=== PATIENT | female | born 1970 | race Caucasian/White ===

== ENCOUNTER → 2019-11-04 | Outpatient (CLI) | payer OTHER ==
--- NOTE | 2019-11-04 12:37 | RAD ---
EXAM: Renal sonogram. HISTORY: Recurrent UTIs. Renal cysts. TECHNIQUE: Sonographic imaging the kidneys and bladder was performed. COMPARISON: None. FINDINGS: The kidneys normal in size. There is no hydronephrosis. There are small simple renal cysts, measuring 9 mm on the right and 13 hours on the left. No solid renal lesion is seen. There is incidental hepatic steatosis. The urinary bladder is unremarkable. IMPRESSION: 1. Small simple renal cysts. No follow-up is routinely recommended for simple cysts. 2. No acute sonographic finding. Electronically signed by: Kaylene Knutson MD (11/04/2019 12:34 PM) [facility]
== END | disposition home or self-care (01) ==
LOC: US 10:59
PROVIDERS: ATTEND Physician Assistant Medical
DX: K76.0 Fatty (change of) liver, not elsewhere classified (principal); N28.1 Cyst of kidney, acquired; N39.0 Urinary tract infection, site not specified
CPT/HCPCS: 76770

== ENCOUNTER → 2021-03-06 | Outpatient (CLI) | payer OTHER ==
--- NOTE | 2021-03-06 16:42 | RAD ---
EXAM: Chest, 2 views. HISTORY: Chest pain. COMPARISON: None. FINDINGS: 2 views of the chest are obtained. There is no infiltrate, pleural effusion or pneumothorax . The heart is normal in size. IMPRESSION: No acute pulmonary finding. Electronically signed by: Kaylene Knutson MD (03/06/2021 4:39 PM) [id number]
== END ==
LOC: RAD 15:47
PROVIDERS: ATTEND Physician Assistant Medical
DX: R07.9 Chest pain, unspecified (principal)
CPT/HCPCS: 71046